=== PATIENT | male | born 1945 | race Caucasian/White ===

== ENCOUNTER 2021-01-08 21:21 | Emergency (ER) | payer MEDICARE, OTHER ==
[~2021-01-08 21:21] MED LIST: ADVAIR HFA 115-28 GM INH; BACLOFEN10 MG PO; BEVESPI AEROS10.7 GM INH; BYSTOLIC10 M1 PO; CIPRO500 MG PO; CLARITIN10 MG PO; CLONAZEPAM1 MG PO; COZAAR100 MG PO; DOXYCYCLINE HY100 MG PO; ESOMEPRAZOLE MA40 MG PO; EZETIMIBE10 MG PO; LEVOTHYROXINE175 MCG PO; MACROBID100 MG PO; MONTELUKAST SOD10 MG PO; PRAMIPEXOLE DI0.5 MG PO; PREDNISONE20 MG PO; PYRIDIUM200 MG PO; RANITIDINE HCL150 MG PO
[2021-01-08 22:01] LABS: BASOPHIL 0.3 % (0-2); EOSINOPHIL 0.4 % (0-7); HCT 42.2 % (42.0-52.0); HGB 14.1 g/dl (13.2-18.0); LYMPHOCYTE 20.9 % (15-48); MCH 32.2 pg (25.0-31.0); MCHC 33.4 g/dL (32.0-36.0); MCV 96.3 fL (78.0-100.0); MONOCYTE 11.7 % (0-12); MPV 9.3 fL (6.0-9.5); NEUTROPHIL 66.4 % (41-80); NRBC 0; PLT 235 K/uL (150-400); RBC 4.38 M/uL (4.70-6.00); WBC 11.6 K/uL (4.0-10.5)
[2021-01-08 22:13] LABS: INR 1.07 (0.9-1.2); PROTHROMBIN TIME 13.3 SECONDS (11.8-13.4)
[2021-01-08 22:14] LABS: PTT 31.8 SECONDS (24.4-34.7)
[2021-01-08 22:15] LABS: D-DIMER 0.51 ug/mLFEU (0.00-0.41)
[2021-01-08 22:23] LABS: ALBUMIN 3.6 g/dL (3.4-5.0); BUN/CREAT RATIO (CALC) 12.4 RATIO; CREATININE 1.05 mg/dL (0.67-1.17); GLOBULIN (CALCULATION) 3.8 g/dL; POTASSIUM 3.3 mmol/L (3.5-5.1); TOTAL PROTEIN 7.4 g/dL (6.4-8.2)
[2021-01-09 10:00] LABS: INR 1.12 (0.9-1.2); PROTHROMBIN TIME 13.8 SECONDS (11.8-13.4)
== END 2021-01-09 11:59 | disposition other institution (70) ==
LOC: FER 21:21
PROVIDERS: Emergency Medicine Emergency Medical Services
DX: I21.09 ST elevation (STEMI) myocardial infarction involving other coronary artery of anterior wall (principal); I10 Essential (primary) hypertension; J45.909 Unspecified asthma, uncomplicated; Z88.2 Allergy status to sulfonamides; Z88.1 Allergy status to other antibiotic agents; Z88.7 Allergy status to serum and vaccine; Z88.6 Allergy status to analgesic agent; Z20.822 Contact with and (suspected) exposure to COVID-19
CPT/HCPCS: 36415; 71045; 71275; 80053; 82550; 82553; 83690; 84484; 85025; 85379; 85610; 85730; 93005; J1644; J2270; J2405; Q9967; U0002